=== PATIENT | female | born 1970 | race Hispanic/Latino ===

== ENCOUNTER 2017-08-30 18:20 | Emergency (ER) | payer MEDICAID, OTHER | END 2017-08-30 19:56 | disposition left against medical advice (07) | LOC: EDH 18:20 | DX: Z53.21 Procedure and treatment not carried out due to patient leaving prior to being seen by health care provider (principal) | CPT/HCPCS: 99281 ==

== ENCOUNTER 2023-07-03 17:44 | Emergency (ER) | payer BC, MEDICAID ==
[~2023-07-03] VITALS: Ht 160 cm; Wt 59.0 kg
[2023-07-03] MEDS ORDERED: KETOROLAC 60 MG VIAL (30MG/ML) IM ONE (19:00)
[2023-07-03] MEDS ORDERED: IBUP-2077 PO (20:39)
[2023-07-03 20:50] VITALS: BP 126/67; PULSE 80; RESP 17; O2SAT 100
== END 2023-07-03 20:55 | disposition home or self-care (01) ==
LOC: EDH 17:44
DX: S92.425A Nondisplaced fracture of distal phalanx of left great toe, initial encounter for closed fracture (principal); M19.90 Unspecified osteoarthritis, unspecified site; F32.A Depression, unspecified; W18.39XA Other fall on same level, initial encounter; Y93.89 Activity, other specified; Y92.89 Other specified places as the place of occurrence of the external cause; Y99.8 Other external cause status
CPT/HCPCS: 99284; 73630; 96372; J1885